=== PATIENT | male | born 1950 | race Caucasian/White ===

== ENCOUNTER 2020-02-26 10:37 | Inpatient (IN) | payer MEDICARE ==
[~2020-02-26] VITALS: Ht 180.3 cm; Wt 138.4 kg
[2020-02-26 10:37] VITALS: BP 147/75
[~2020-02-26 10:37] MED LIST: AMLODIPINE10 MG; ASPIRIN81 M1; AUGMENTIN 875 M1 TAB PO; BENICAR HCT 251 TA1; IBU800 M1 PO; POTASSIUM CHLO10 MEQ; PREDNICOT20 MG PO; PROAIR HFA0.09 MG/AC IH; PROTONIX40 M1; SOTALOL80 MG
[2020-02-26 11:05] LABS: BASO % 0.2 % (0.0-1.0); HEMATOCRIT 33.1 % (42.0-52.0); LYMPH # 0.9 10*3/uL (1.3-4.4); LYMPH % 16.5 % (27.0-41.0); MEAN CELL VOLUME 82.3 fl (80.0-94.0); MEAN CORPUSCULAR HGB 27.6 pg (27.0-31.0); MEAN CORPUSCULAR HGB CONC 33.5 g/dl (33.0-37.0); MEAN PLATELET VOLUME 9.8 fl (9.6-12.3); MONO # 0.2 10*3/uL (0.1-1.0); MONO % 4.3 % (3.0-9.0); NEUT # 4.2 10*3/uL (2.3-7.9); NEUT % 78.4 % (47.0-73.0); PLATELET COUNT AUTOMATED 185 10*3/uL (130-400); RED BLOOD COUNT 4.02 10*6/uL (4.50-5.90); RED CELL DISTRI WIDTH 13.8 % (0-14.5); WHITE BLOOD COUNT 5.4 10*3/uL (4.8-10.8)
[2020-02-26 11:16] LABS: ACT PARTIAL THROMBO TIME 32.1 SECONDS (20.0-32.1)
[2020-02-26 11:21] LABS: ALBUMIN 2.4 gm/dl (3.1-4.5); CREATININE 2.91 mg/dL (0.70-1.30); POTASSIUM 3.3 mmol/L (3.5-5.1); TOTAL PROTEIN 7.2 gm/dL (6.4-8.2)
[2020-02-26] MEDS ORDERED: METHYLPRED-DP4 MG PO (11:23)
[2020-02-26] MEDS ORDERED: FAMOTIDINE20 M1 PO (11:23)
[2020-02-26] MEDS ORDERED: AVPAK AZITHROM250 M1 PO (11:23)
[2020-02-26 11:24] LABS: TROPONIN I 0.133 ng/ml (<0.045)
[2020-02-26] MEDS ORDERED: FUROSEMIDE20 M1 PO (11:29)
[2020-02-26] MEDS ORDERED: METFORMIN HYDR500 MG PO (11:31)
[2020-02-26 11:36] VITALS: BP 121/60
[2020-02-26 13:37] VITALS: BP 113/89
[2020-02-26 14:38] LABS: ABG BASE EXCESS -0.4 mmol/L (-2.0-2.0); ARTERIAL BLOOD GAS PH 7.463 (7.35-7.45)
[2020-02-26 15:31] VITALS: BP 138/71
[2020-02-26 16:07] LABS: BILIRUBIN Negative (Negative); BLOOD 3+ (Negative); CLARITY Cloudy (Clear); COLOR Yellow (Yellow); GLUCOSE Negative (Negative); KETONE Negative (Negative); LEUKO ESTERASE Negative (Negative); NITRITE Negative (Negative); PH 5.5 (4.5-8.0); SPECIFIC GRAVITY 1.025 (1.001-1.030)
[2020-02-26 16:30] LABS: WAXY CAST 0-2
[2020-02-26 16:32] LABS: BACTERIA 1+; EPITHELIAL CELLS 0-2; HYALINE CAST 0-2
[2020-02-26 17:20] VITALS: BP 143/67
[2020-02-26 20:00] VITALS: BP 110/61
[2020-02-27] VITALS: BP 121/56
[2020-02-27 07:24] LABS: BASO % 0.1 % (0.0-1.0); HEMATOCRIT 35.5 % (42.0-52.0); LYMPH # 0.7 10*3/uL (1.3-4.4); LYMPH % 10.3 % (27.0-41.0); MEAN CELL VOLUME 84.3 fl (80.0-94.0); MEAN CORPUSCULAR HGB 27.3 pg (27.0-31.0); MEAN CORPUSCULAR HGB CONC 32.4 g/dl (33.0-37.0); MEAN PLATELET VOLUME 10.5 fl (9.6-12.3); MONO # 0.4 10*3/uL (0.1-1.0); NEUT # 5.9 10*3/uL (2.3-7.9); PLATELET COUNT AUTOMATED 222 10*3/uL (130-400); RED BLOOD COUNT 4.21 10*6/uL (4.50-5.90); RED CELL DISTRI WIDTH 14.3 % (0-14.5); WHITE BLOOD COUNT 7.1 10*3/uL (4.8-10.8)
[2020-02-27 07:30] LABS: ALBUMIN 2.4 gm/dl (3.1-4.5); CREATININE 2.95 mg/dL (0.70-1.30); POTASSIUM 3.6 mmol/L (3.5-5.1)
[2020-02-27 07:51] LABS: FREE T4 1.24 ng/dl (0.76-1.46); THYROID STIM HORMONE (HS) 0.022 uIU/ml (0.358-4.75); TOTAL PROTEIN 7.5 gm/dL (6.4-8.2)
[2020-02-27 08:00] VITALS: BP 138/75
[2020-02-27 12:00] VITALS: BP 131/53
[2020-02-27 14:20] LABS: VITAMIN D, 25-HYDROXY 21.8 ng/mL (30-100)
[2020-02-27 14:21] LABS: FERRITIN 1310.4 ng/mL (22.0-322.0)
[2020-02-27 16:00] VITALS: BP 125/67
[2020-02-27 20:00] VITALS: BP 107/78; BP 111/56
[2020-02-28] VITALS: BP 118/58
[2020-02-28 06:23] LABS: BASO % 0.1 % (0.0-1.0); HEMATOCRIT 34.2 % (42.0-52.0); LYMPH # 0.7 10*3/uL (1.3-4.4); LYMPH % 9.3 % (27.0-41.0); MEAN CORPUSCULAR HGB 27.5 pg (27.0-31.0); MEAN CORPUSCULAR HGB CONC 32.7 g/dl (33.0-37.0); MEAN PLATELET VOLUME 10.4 fl (9.6-12.3); MONO # 0.5 10*3/uL (0.1-1.0); NEUT # 6.4 10*3/uL (2.3-7.9); NEUT % 84.1 % (47.0-73.0); PLATELET COUNT AUTOMATED 230 10*3/uL (130-400); RED BLOOD COUNT 4.07 10*6/uL (4.50-5.90); RED CELL DISTRI WIDTH 14.3 % (0-14.5); WHITE BLOOD COUNT 7.6 10*3/uL (4.8-10.8)
[2020-02-28 06:40] LABS: ALBUMIN 2.3 gm/dl (3.1-4.5); CREATININE 2.86 mg/dL (0.70-1.30); POTASSIUM 3.8 mmol/L (3.5-5.1); TOTAL PROTEIN 6.9 gm/dL (6.4-8.2)
[2020-02-28 08:00] VITALS: BP 121/60
[2020-02-28 12:00] VITALS: BP 116/64
[2020-02-28 16:00] VITALS: BP 135/68
[2020-02-28 20:00] VITALS: BP 118/65
[2020-02-29] VITALS: BP 122/66
[2020-02-29 07:41] LABS: BASO % 0.2 % (0.0-1.0); HEMATOCRIT 36.6 % (42.0-52.0); LYMPH # 0.8 10*3/uL (1.3-4.4); LYMPH % 14.4 % (27.0-41.0); MEAN CELL VOLUME 84.9 fl (80.0-94.0); MEAN CORPUSCULAR HGB 27.6 pg (27.0-31.0); MEAN CORPUSCULAR HGB CONC 32.5 g/dl (33.0-37.0); MEAN PLATELET VOLUME 10.5 fl (9.6-12.3); MONO # 0.3 10*3/uL (0.1-1.0); MONO % 5.6 % (3.0-9.0); NEUT # 4.2 10*3/uL (2.3-7.9); NEUT % 78.7 % (47.0-73.0); RED BLOOD COUNT 4.31 10*6/uL (4.50-5.90); RED CELL DISTRI WIDTH 14.6 % (0-14.5); WHITE BLOOD COUNT 5.4 10*3/uL (4.8-10.8)
[2020-02-29 07:50] LABS: PLATELET COUNT AUTOMATED 336 10*3/uL (130-400)
[2020-02-29 08:00] VITALS: BP 138/73
[2020-02-29 08:08] LABS: ALBUMIN 2.4 gm/dl (3.1-4.5); CREATININE 2.61 mg/dL (0.70-1.30); POTASSIUM 3.6 mmol/L (3.5-5.1); TOTAL PROTEIN 7.6 gm/dL (6.4-8.2)
[2020-02-29 12:00] VITALS: BP 138/62
[2020-02-29 16:00] VITALS: BP 126/60
[2020-02-29 20:00] VITALS: BP 115/63
[2020-02-29 23:57] VITALS: BP 133/71
[2020-03-01 06:15] LABS: HEMATOCRIT 32.1 % (42.0-52.0); MEAN CELL VOLUME 84.5 fl (80.0-94.0); MEAN CORPUSCULAR HGB 27.4 pg (27.0-31.0); MEAN CORPUSCULAR HGB CONC 32.4 g/dl (33.0-37.0); PLATELET COUNT AUTOMATED 294 10*3/uL (130-400); RED CELL DISTRI WIDTH 14.5 % (0-14.5); WHITE BLOOD COUNT 5.2 10*3/uL (4.8-10.8)
[2020-03-01 06:30] LABS: CREATININE 2.39 mg/dL (0.70-1.30); POTASSIUM 4.2 mmol/L (3.5-5.1); TOTAL PROTEIN 6.6 gm/dL (6.4-8.2)
[2020-03-01 06:36] LABS: ALBUMIN 2.1 gm/dl (3.1-4.5)
[2020-03-01 07:28] LABS: ATYPICAL LYMPHS 1 % (0-0); TOTAL CELLS COUNTED 100 #CELLS
[2020-03-01 07:40] LABS: BURR CELLS FEW; OVALOCYTES FEW; PLATELET SUFFICIENCY NORMAL (NORMAL)
[2020-03-01 08:00] VITALS: BP 127/67
[2020-03-01 12:00] VITALS: BP 165/80
[2020-03-01] MEDS ORDERED: LOPRESSOR25 MG PO (14:14)
[2020-03-01] MEDS ORDERED: VITAMIN D350 MC2 PO (14:14)
[2020-03-01] MEDS ORDERED: ELIQUIS5 M1 PO (14:14)
[2020-03-01] MEDS ORDERED: Humalog SQ ×2 (14:14→14:34)
[2020-03-01] MEDS ORDERED: DECADRON6 M1 PO (14:19)
== END 2020-03-01 17:27 | disposition home or self-care (01) | DRG 177 ==
LOC: ED 10:37 → EDHOLD 13:56 → 4E 13:56
PROVIDERS: Emergency Medicine; Internal Medicine; Social Worker Clinical; Student in an Organized Health Care Education/Training Program; ADMIT Internal Medicine; ATTEND Internal Medicine
PROC: XW033E5 Introduction of Remdesivir Anti-infective into Peripheral Vein, Percutaneous Approach, New Technology Group 5 (ICD-10-PCS; principal; 2020-02-26)
DX: U07.1 COVID-19 (principal); J12.82 Pneumonia due to coronavirus disease 2019; N17.0 Acute kidney failure with tubular necrosis; J96.01 Acute respiratory failure with hypoxia; E87.1 Hypo-osmolality and hyponatremia; E11.65 Type 2 diabetes mellitus with hyperglycemia; Z96.653 Presence of artificial knee joint, bilateral; E86.0 Dehydration; E87.6 Hypokalemia; I48.0 Paroxysmal atrial fibrillation; N18.9 Chronic kidney disease, unspecified; D64.9 Anemia, unspecified; I35.0 Nonrheumatic aortic (valve) stenosis; I12.9 Hypertensive chronic kidney disease with stage 1 through stage 4 chronic kidney disease, or unspecified chronic kidney disease; E55.9 Vitamin D deficiency, unspecified; Z90.49 Acquired absence of other specified parts of digestive tract; Z82.49 Family history of ischemic heart disease and other diseases of the circulatory system; Z82.61 Family history of arthritis; Z79.899 Other long term (current) drug therapy

== ENCOUNTER → 2020-05-26 | Outpatient (CLI) | payer MEDICARE ==
[~2020-05-26] MED LIST changes: +AVPAK AZITHROM250 M1 PO; +DECADRON6 M1 PO; +ELIQUIS5 M1 PO; +FAMOTIDINE20 M1 PO; +FUROSEMIDE20 M1 PO; +Humalog SQ; +LOPRESSOR25 MG PO; +METFORMIN HYDR500 MG PO; +METHYLPRED-DP4 MG PO; +VITAMIN D350 MC2 PO
== END | disposition home or self-care (01) ==
LOC: US 09:28
PROVIDERS: ATTEND Internal Medicine Nephrology
DX: N18.4 Chronic kidney disease, stage 4 (severe) (principal)

== ENCOUNTER → 2021-12-02 | Outpatient (CLI) | payer MEDICARE ==
[~2021-12-02] MED LIST changes: +LIPITOR20 MG PO; +LOSARTAN-HCTZ1 EACH PO; +ZITHROMAX250 MG PO
== END | disposition home or self-care (01) ==
LOC: RESCLI 01:09
PROVIDERS: ATTEND Internal Medicine
DX: I13.0 Hypertensive heart and chronic kidney disease with heart failure and stage 1 through stage 4 chronic kidney disease, or unspecified chronic kidney disease (principal); E11.22 Type 2 diabetes mellitus with diabetic chronic kidney disease; I50.9 Heart failure, unspecified; N18.4 Chronic kidney disease, stage 4 (severe); K21.9 Gastro-esophageal reflux disease without esophagitis; I48.91 Unspecified atrial fibrillation; E78.5 Hyperlipidemia, unspecified; G47.33 Obstructive sleep apnea (adult) (pediatric); G62.9 Polyneuropathy, unspecified; G20 Parkinson's disease; E55.9 Vitamin D deficiency, unspecified; Z72.89 Other problems related to lifestyle; Z98.890 Other specified postprocedural states; Z79.82 Long term (current) use of aspirin; Z79.01 Long term (current) use of anticoagulants; Z79.899 Other long term (current) drug therapy

== ENCOUNTER → 2022-02-16 | Outpatient (CLI) | payer MEDICARE | END | disposition home or self-care (01) | LOC: RESCLI 02-14 15:16 | PROVIDERS: ATTEND Internal Medicine | DX: I13.0 Hypertensive heart and chronic kidney disease with heart failure and stage 1 through stage 4 chronic kidney disease, or unspecified chronic kidney disease (principal); I50.9 Heart failure, unspecified; N18.4 Chronic kidney disease, stage 4 (severe); I48.91 Unspecified atrial fibrillation; G47.33 Obstructive sleep apnea (adult) (pediatric); K21.9 Gastro-esophageal reflux disease without esophagitis; E78.5 Hyperlipidemia, unspecified; Z79.01 Long term (current) use of anticoagulants; Z79.82 Long term (current) use of aspirin; Z79.899 Other long term (current) drug therapy ==

== ENCOUNTER 2022-04-01 08:31 | Inpatient (IN) | payer MEDICARE ==
[~2022-04-01] VITALS: Ht 177.8 cm; Wt 137.0 kg
[2022-04-01] VITALS (8 sets, daily range): BP systolic 121–144; BP diastolic 52–71
[2022-04-01] MEDS ORDERED: CALCIUM ACETAT667 MG PO (08:49)
[2022-04-01] MEDS ORDERED: TORSEMIDE20 MG PO (08:50)
[2022-04-01 08:51] LABS: BASO # 0.1 10*3/uL (0.0-0.1); BASO % 0.9 % (0.0-1.0); EOS # 0.5 10*3/uL (0.0-0.4); EOS % 5.4 % (1.0-4.0); HEMATOCRIT 26.5 % (42.0-52.0); LYMPH # 2.2 10*3/uL (1.3-4.4); LYMPH % 23.9 % (27.0-41.0); MEAN CELL VOLUME 85.8 fl (80.0-94.0); MEAN CORPUSCULAR HGB 28.8 pg (27.0-31.0); MEAN CORPUSCULAR HGB CONC 33.6 g/dl (33.0-37.0); MEAN PLATELET VOLUME 9.4 fl (9.6-12.3); MONO # 0.9 10*3/uL (0.1-1.0); MONO % 9.5 % (3.0-9.0); NEUT # 5.6 10*3/uL (2.3-7.9); NEUT % 59.9 % (47.0-73.0); PLATELET COUNT AUTOMATED 255 10*3/uL (130-400); RED BLOOD COUNT 3.09 10*6/uL (4.50-5.90); WHITE BLOOD COUNT 9.3 10*3/uL (4.8-10.8)
[2022-04-01] MEDS ORDERED: NIFEDIPINE60 MG PO (08:51)
[2022-04-01] MEDS ORDERED: DAILY FIBER0.52 GM PO (08:51)
[2022-04-01] MEDS ORDERED: WARFARIN SOD5 MG PO (08:52)
[2022-04-01] MEDS ORDERED: ROPINIROLE HYDRO1 MG PO (08:52)
[2022-04-01] MEDS ORDERED: LIPITOR20 MG PO (08:53)
[2022-04-01] MEDS ORDERED: CARVEDILOL25 MG PO (08:53)
[2022-04-01] MEDS ORDERED: VITAMIN D250 MC1 PO (08:53)
[2022-04-01] MEDS ORDERED: ASPIRIN ADULT L81 M1 PO (08:54)
[2022-04-01 09:03] LABS: INTERNATIONAL NORM RATIO 1.9 (2.0-3.5)
[2022-04-01 09:06] LABS: POTASSIUM 3.5 mmol/L (3.4-5.1); TOTAL PROTEIN 7.4 gm/dL (6.0-8.0)
[2022-04-01 11:45] LABS: BILIRUBIN Negative (Negative); BLOOD 1+ (Negative); CLARITY Clear (Clear); COLOR Yellow (Yellow); GLUCOSE Trace (Negative); KETONE Negative (Negative); LEUKO ESTERASE Negative (Negative); NITRITE Negative (Negative); UROBILINOGEN 0.2 E.U./dl (0.0-1.0)
[2022-04-01 12:00] LABS: BACTERIA TRACE; EPITHELIAL CELLS 0-2; RBC 0-2 rbc/hpf (0-2); WBC 0-2 wbc/hpf (0-5)
[2022-04-01] MEDS ORDERED: Coumadin2.5 MG PO (16:10)
[2022-04-01] MEDS ORDERED: XALATAN 0.005%2.5 ML INTRAOC (16:14)
[2022-04-02] VITALS: BP 134/74
[2022-04-02 06:45] LABS: BASO # 0.1 10*3/uL (0.0-0.1); BASO % 0.8 % (0.0-1.0); EOS # 0.5 10*3/uL (0.0-0.4); EOS % 4.7 % (1.0-4.0); HEMATOCRIT 25.1 % (42.0-52.0); LYMPH # 1.8 10*3/uL (1.3-4.4); LYMPH % 18.3 % (27.0-41.0); MEAN CORPUSCULAR HGB 29.5 pg (27.0-31.0); MEAN CORPUSCULAR HGB CONC 33.1 g/dl (33.0-37.0); MEAN PLATELET VOLUME 8.8 fl (9.6-12.3); MONO # 0.8 10*3/uL (0.1-1.0); MONO % 7.8 % (3.0-9.0); NEUT # 6.8 10*3/uL (2.3-7.9); NEUT % 68.1 % (47.0-73.0); PLATELET COUNT AUTOMATED 206 10*3/uL (130-400); RED BLOOD COUNT 2.81 10*6/uL (4.50-5.90); RED CELL DISTRI WIDTH 15.4 % (0-14.5)
[2022-04-02 07:07] LABS: ALKALINE PHOSPHATASE 88 U/L (46-116); BUN 56 mg/dl (9-23); CHLORIDE 108 mmol/L (98-107); CHOLESTEROL 117 mg/dL (<200); FREE T4 1.26 ng/dl (0.89-1.76); LDL CHOLESTEROL 55 mg/dL (9-159); POTASSIUM 3.8 mmol/L (3.4-5.1); SGPT/ALT 17 U/L (10-49); TOTAL PROTEIN 7.1 gm/dL (6.0-8.0); TRIGLYCERIDES 161 mg/dl (<150)
[2022-04-02 07:16] LABS: ACT PARTIAL THROMBO TIME 36.4 SECONDS (20.0-32.1); INTERNATIONAL NORM RATIO 1.8 (2.0-3.5)
[2022-04-02 07:18] LABS: MEAN CELL VOLUME 89.3 fl (80.0-94.0)
[2022-04-02 07:38] LABS: THYROID STIM HORMONE (HS) < 0.008 uIU/ml (0.550-4.780)
[2022-04-02 07:41] LABS: VITAMIN D, 25-HYDROXY 52.2 ng/mL (30-100)
[2022-04-02 08:00] VITALS: BP 141/66
[2022-04-02 12:00] VITALS: BP 110/67; BP 130/60
[2022-04-02 16:00] VITALS: BP 145/72
[2022-04-02 20:00] VITALS: BP 135/66
[2022-04-02 21:57] VITALS: BP 127/51
[2022-04-02 22:41] LABS: BASO # 0.1 10*3/uL (0.0-0.1); BASO % 0.8 % (0.0-1.0); EOS # 0.4 10*3/uL (0.0-0.4); EOS % 3.5 % (1.0-4.0); HEMATOCRIT 27.8 % (42.0-52.0); LYMPH # 1.5 10*3/uL (1.3-4.4); LYMPH % 13.1 % (27.0-41.0); MEAN CORPUSCULAR HGB 30.1 pg (27.0-31.0); MEAN CORPUSCULAR HGB CONC 31.7 g/dl (33.0-37.0); MEAN PLATELET VOLUME 9.2 fl (9.6-12.3); MONO # 0.8 10*3/uL (0.1-1.0); MONO % 7.2 % (3.0-9.0); NEUT # 8.7 10*3/uL (2.3-7.9); PLATELET COUNT AUTOMATED 210 10*3/uL (130-400); RED BLOOD COUNT 2.92 10*6/uL (4.50-5.90); RED CELL DISTRI WIDTH 15.4 % (0-14.5); WHITE BLOOD COUNT 11.6 10*3/uL (4.8-10.8)
[2022-04-02 22:51] LABS: MEAN CELL VOLUME 95.2 fl (80.0-94.0)
[2022-04-02 23:01] LABS: POTASSIUM 4.1 mmol/L (3.4-5.1)
[2022-04-03] VITALS: BP 127/57
== END 2022-04-03 02:00 | disposition short-term general hospital (02) | DRG 308 ==
LOC: ED 08:31 → EDHOLD 11:10 → 5E 13:18 → ICCU 04-02 23:07
PROVIDERS: Emergency Medicine; Internal Medicine; ADMIT Internal Medicine; ATTEND Internal Medicine
DX: I49.9 Cardiac arrhythmia, unspecified (principal); N17.0 Acute kidney failure with tubular necrosis; N18.4 Chronic kidney disease, stage 4 (severe); I50.32 Chronic diastolic (congestive) heart failure; I13.0 Hypertensive heart and chronic kidney disease with heart failure and stage 1 through stage 4 chronic kidney disease, or unspecified chronic kidney disease; D64.9 Anemia, unspecified; E11.22 Type 2 diabetes mellitus with diabetic chronic kidney disease; E11.65 Type 2 diabetes mellitus with hyperglycemia; Z96.653 Presence of artificial knee joint, bilateral; I48.0 Paroxysmal atrial fibrillation; E78.2 Mixed hyperlipidemia; Z79.01 Long term (current) use of anticoagulants; Z90.49 Acquired absence of other specified parts of digestive tract; Z82.49 Family history of ischemic heart disease and other diseases of the circulatory system; Z95.2 Presence of prosthetic heart valve; Z79.899 Other long term (current) drug therapy

== ENCOUNTER → 2022-10-25 | Outpatient (CLI) | payer OTHER ==
[~2022-10-25] MED LIST changes: +ASPIRIN ADULT L81 M1 PO; +CALCIUM ACETAT667 MG PO; +CARVEDILOL25 MG PO; +Coumadin2.5 MG PO; +DAILY FIBER0.52 GM PO; +NIFEDIPINE60 MG PO; +ROPINIROLE HYDRO1 MG PO; +TORSEMIDE20 MG PO; +VITAMIN D250 MC1 PO; +WARFARIN SOD5 MG PO; +XALATAN 0.005%2.5 ML INTRAOC
[2022-10-25 11:49] LABS: BILIRUBIN Negative (Negative); BLOOD 1+ (Negative); CLARITY Clear (Clear); COLOR Yellow (Yellow); GLUCOSE Negative (Negative); KETONE Negative (Negative); LEUKO ESTERASE Negative (Negative); NITRITE Negative (Negative); UROBILINOGEN 0.2 E.U./dl (0.0-1.0)
[2022-10-25 11:51] LABS: BASO # 0.2 10*3/uL (0.0-0.1); BASO % 1.4 % (0.0-1.0); EOS # 0.9 10*3/uL (0.0-0.4); EOS % 8.2 % (1.0-4.0); LYMPH # 1.6 10*3/uL (1.3-4.4); MEAN CELL VOLUME 87.2 fl (80.0-94.0); MEAN CORPUSCULAR HGB 27.3 pg (27.0-31.0); MEAN CORPUSCULAR HGB CONC 31.3 g/dl (33.0-37.0); MEAN PLATELET VOLUME 9.6 fl (9.6-12.3); MONO # 0.9 10*3/uL (0.1-1.0); MONO % 8.3 % (3.0-9.0); NEUT # 6.9 10*3/uL (2.3-7.9); NEUT % 66.4 % (47.0-73.0); PLATELET COUNT AUTOMATED 267 10*3/uL (130-400); RED BLOOD COUNT 3.44 10*6/uL (4.50-5.90); RED CELL DISTRI WIDTH 16.3 % (0-14.5); WHITE BLOOD COUNT 10.4 10*3/uL (4.8-10.8)
[2022-10-25 11:57] LABS: BACTERIA 1+; MUCOUS 1+
[2022-10-25 11:58] LABS: URINE CREATININE RANDOM 67.39 mg/dL
[2022-10-25 12:18] LABS: POTASSIUM 3.3 mmol/L (3.4-5.1)
[2022-10-25 12:23] LABS: VITAMIN D, 25-HYDROXY 105.1 ng/mL (30-100)
[2022-10-26 05:06] LABS: HBSAG Negative (Negative); HEP B CORE AB, IGM Negative (Negative); HEPATITIS C ANTIBODY Non Reactive (Non Reactive)
== END | disposition home or self-care (01) ==
LOC: LAB 11:00
PROVIDERS: ATTEND Internal Medicine Nephrology
DX: N18.5 Chronic kidney disease, stage 5 (principal); N25.81 Secondary hyperparathyroidism of renal origin; D63.1 Anemia in chronic kidney disease

== ENCOUNTER 2023-12-08 07:34 | Emergency (ER) | payer OTHER ==
[~2023-12-08] VITALS: Ht 177.8 cm; Wt 127.5 kg
[~2023-12-08 07:34] MED LIST changes: +ATORVASTATIN CA20 M1 PO; +AURYXIA210 MG PO; +METOPROLOL SUCC25 M2 PO; +MIDODRINE HCL10 MG PO; +NEURONTIN300 MG PO; +RENA-VITE1 TAB PO; +TORSEMIDE100 MG PO
[2023-12-08] MEDS ORDERED: Oxymetazoline Hydrochloride Nasal 15 ml bottle NAS ONE (08:00)
[2023-12-08 08:21] LABS: BASO # 0.1 10*3/uL (0.0-0.1); BASO % 0.6 % (0.0-1.0); EOS # 0.3 10*3/uL (0.0-0.4); EOS % 3.4 % (1.0-4.0); HEMATOCRIT 28.9 % (42.0-52.0); LYMPH # 1.5 10*3/uL (1.3-4.4); LYMPH % 15.5 % (27.0-41.0); MEAN CORPUSCULAR HGB 32.2 pg (27.0-31.0); MEAN CORPUSCULAR HGB CONC 33.2 g/dl (33.0-37.0); MEAN PLATELET VOLUME 9.4 fl (9.6-12.3); NEUT # 6.7 10*3/uL (2.3-7.9); NEUT % 70.2 % (47.0-73.0); PLATELET COUNT AUTOMATED 141 10*3/uL (130-400); RED BLOOD COUNT 2.98 10*6/uL (4.50-5.90); RED CELL DISTRI WIDTH 14.6 % (0-14.5); WHITE BLOOD COUNT 9.5 10*3/uL (4.8-10.8)
[2023-12-08 08:43] LABS: POTASSIUM 3.1 mmol/L (3.4-5.1)
[2023-12-08 08:49] LABS: ACT PARTIAL THROMBO TIME 62.2 SECONDS (20.0-32.1)
[2023-12-08] MEDS ORDERED: POTASSIUM CHLORIDE 20 MEQ TAB PO ONE (09:00)
== END 2023-12-08 09:20 | disposition home or self-care (01) ==
LOC: ED 07:34
PROVIDERS: Emergency Medicine
DX: R04.0 Epistaxis (principal); E87.6 Hypokalemia; R79.1 Abnormal coagulation profile; I48.91 Unspecified atrial fibrillation; E78.5 Hyperlipidemia, unspecified; E11.22 Type 2 diabetes mellitus with diabetic chronic kidney disease; N18.6 End stage renal disease; I13.2 Hypertensive heart and chronic kidney disease with heart failure and with stage 5 chronic kidney disease, or end stage renal disease; I50.9 Heart failure, unspecified; D63.1 Anemia in chronic kidney disease; E87.1 Hypo-osmolality and hyponatremia; Z99.2 Dependence on renal dialysis; Z98.890 Other specified postprocedural states; Z90.49 Acquired absence of other specified parts of digestive tract; Z96.653 Presence of artificial knee joint, bilateral

== ENCOUNTER 2024-06-28 10:13 | Observation (INO) | payer OTHER ==
[~2024-06-28] VITALS: Ht 177.8 cm; Wt 113.4 kg
[2024-06-28 10:29] VITALS: BP 106/62
[2024-06-28] MEDS ORDERED: MORPHINE Sulfate 2 MG/ML SYR IV ONE (10:45)
[2024-06-28 10:54] LABS: BASO # 0.1 10*3/uL (0.0-0.1); BASO % 0.6 % (0.0-1.0); EOS # 0.2 10*3/uL (0.0-0.4); EOS % 1.5 % (1.0-4.0); HEMATOCRIT 24.9 % (42.0-52.0); MEAN CELL VOLUME 100.4 fl (80.0-94.0); MEAN CORPUSCULAR HGB 31.5 pg (27.0-31.0); MEAN CORPUSCULAR HGB CONC 31.3 g/dl (33.0-37.0); MEAN PLATELET VOLUME 8.4 fl (9.6-12.3); MONO # 1.2 10*3/uL (0.1-1.0); MONO % 8.3 % (3.0-9.0); NEUT # 11.4 10*3/uL (2.3-7.9); NEUT % 79.5 % (47.0-73.0); NUCLEATED RED BLOOD CELL 0.3 % (0.0-0.0); PLATELET COUNT AUTOMATED 335 10*3/uL (130-400); RED BLOOD COUNT 2.48 10*6/uL (4.50-5.90); RED CELL DISTRI WIDTH 16.6 % (0-14.5); WHITE BLOOD COUNT 14.4 10*3/uL (4.8-10.8)
[2024-06-28 11:15] LABS: POTASSIUM 4.1 mmol/L (3.4-5.1); TOTAL PROTEIN 7.2 gm/dL (6.0-8.0)
[2024-06-28] MEDS ORDERED: ACETAMINOPHEN 325 MG TAB PO PRN (18:50)
[2024-06-28] MEDS ORDERED: Magnesium Hydroxide 30 ML UDC PO PRN (18:50)
[2024-06-28] MEDS ORDERED: BISACODYL 10 MG SUPP R PRN (18:50)
[2024-06-28] MEDS ORDERED: Ondansetron Hydrochloride 4 MG/2 ML VIAL IV PRN (18:50)
[2024-06-28] MEDS ORDERED: ACETAMINOPHEN 650 MG SUPP R PRN (18:50)
[2024-06-28] MEDS ORDERED: BISACODYL 5 MG TAB PO PRN (18:50)
[2024-06-28] MEDS ORDERED: DEXTROSE 50% 25 GM/50 ML VIAL IV PRN (19:15)
[2024-06-28] MEDS ORDERED: cefTRIAXone Sodium 1 GM in SYRINGE INFUSION 10 ML IV SCH (20:00)
[2024-06-28] MEDS ORDERED: AMOX-CLAV 500-1 EACH PO (20:24)
[2024-06-28] MEDS ORDERED: OXYCODONE HCL5 MG PO (20:25)
[2024-06-28] MEDS ORDERED: DULCOLAX STOOL100 M1 PO (20:27)
[2024-06-28] MEDS ORDERED: Doxycycline Hyclate 100 MG in SODIUM CHLORIDE 0.9% 250 ML IV SCH (21:00)
[2024-06-28 21:17] VITALS: BP 106/56
[2024-06-28] MEDS ORDERED: INSULIN LISPRO 1 UNIT/0.01 ML SQ SCH (22:00)
[2024-06-28 23:28] VITALS: BP 94/49
[2024-06-29 03:26] VITALS: BP 113/63
[2024-06-29 06:20] LABS: BASO # 0.1 10*3/uL (0.0-0.1); BASO % 0.7 % (0.0-1.0); EOS # 0.8 10*3/uL (0.0-0.4); EOS % 6.4 % (1.0-4.0); HEMATOCRIT 23.8 % (42.0-52.0); MEAN CELL VOLUME 101.7 fl (80.0-94.0); MEAN CORPUSCULAR HGB 31.2 pg (27.0-31.0); MEAN CORPUSCULAR HGB CONC 30.7 g/dl (33.0-37.0); MEAN PLATELET VOLUME 8.6 fl (9.6-12.3); MONO # 1.1 10*3/uL (0.1-1.0); NEUT % 71.7 % (47.0-73.0); NUCLEATED RED BLOOD CELL 0.2 % (0.0-0.0); PLATELET COUNT AUTOMATED 305 10*3/uL (130-400); RED BLOOD COUNT 2.34 10*6/uL (4.50-5.90); RED CELL DISTRI WIDTH 16.8 % (0-14.5); WHITE BLOOD COUNT 12.5 10*3/uL (4.8-10.8)
[2024-06-29 07:40] LABS: FREE T4 1.44 ng/dl (0.89-1.76); POTASSIUM 4.2 mmol/L (3.4-5.1); TOTAL PROTEIN 6.6 gm/dL (6.0-8.0)
[2024-06-29] MEDS ORDERED: OXYCODONE HCL (IR) 5 MG TAB PO PRN (09:32)
[2024-06-29 09:37] VITALS: BP 121/76
[2024-06-29] MEDS ORDERED: DOCUSATE SODIUM 100 MG CAP PO SCH (10:00)
[2024-06-29] MEDS ORDERED: Midodrine Hydrochloride 5 MG TAB PO SCH (10:00)
[2024-06-29] MEDS ORDERED: METOPROLOL SUCCINATE XR 25 MG TAB PO SCH (10:00)
[2024-06-29 12:24] VITALS: BP 112/70
[2024-06-29] MEDS ORDERED: ATORVASTATIN CALCIUM 20 MG TAB PO SCH (18:00)
[2024-06-29] MEDS ORDERED: LATANOPROST 0.005% 2.5 ML BOTTLE INTRAOC SCH (20:00)
[2024-06-29] MEDS ORDERED: FAMOTIDINE 20 MG TAB PO SCH (22:00)
[2024-06-30 07:06] LABS: HEMOGOLBIN A1C 5.3 % (4.8-5.6)
== END 2024-06-29 13:19 | disposition short-term general hospital (02) ==
LOC: ED 10:13 → EDHOLD 18:45
PROVIDERS: Internal Medicine; ADMIT Family Medicine; ATTEND Family Medicine
DX: J90 Pleural effusion, not elsewhere classified (principal); R74.8 Abnormal levels of other serum enzymes; D53.9 Nutritional anemia, unspecified; Z79.82 Long term (current) use of aspirin; Z79.899 Other long term (current) drug therapy; Z79.01 Long term (current) use of anticoagulants; Z90.49 Acquired absence of other specified parts of digestive tract